=== PATIENT | female | born 1950 | race Two or more races ===

== ENCOUNTER 2017-12-03 11:50 | Emergency (ER) | payer OTHER ==
[2017-12-03 12:09] VITALS: BP 179/82; PULSE 87; TEMP 97.3; BMI 34.7
--- NOTE | 2017-12-03 13:36 | PDOC ---
History of Present Illness - General Chief Complaint: Injury Stated Complaint: FALL Time Seen by Provider: 12/03/17 12:40 History Source: Patient Exam Limitations: No Limitations - History of Present Illness Initial Comments: 12/03/17 13:35 Brought in by ambulance, status post trip and fall sidewalk. Patient struck face and right brow, but had no LOC. Denies striking nose, dental injury, or extremity injury. 12/03/17 13:40 Occurred: reports: just prior to arrival Pain Location: reports: face. denies: mouth, neck Method of Injury: Yes: fall Loss of Consciousness: no loss of consciousness Associated Symptoms (Fall): denies symptoms Past History - Travel Traveled outside of the country in the last 30 days: No Close contact w/someone who was outside of country & ill: No - Past Medical History Allergies/Adverse Reactions: Allergies Allergy/AdvReac Type Severity Reaction Status Date / Time No Known Allergies Allergy Verified 12/03/17 12:08 Home Medications: Ambulatory Orders Unobtainable [Unobtainable] 12/03/17 COPD: No Diabetes: Yes HTN: Yes - Surgical History Neurologic Surgery: Yes (back) - Immunization History Immunization Up to Date: Yes - Suicide/Smoking/Psychosocial Hx Smoking History: Never smoked Have you smoked in the past 12 months: No Information on smoking cessation initiated: No Hx Alcohol Use: No Drug/Substance Use Hx: No Substance Use Type: None Trauma Specific PMHX - Complaint Specific PMHX Back Injury: No Neck Injury: No Review of Systems - Review of Systems Able to Perform ROS?: Yes Is the patient limited [place] proficient: Yes Constitutional: Yes: Symptoms Reported, See HPI. No: Chills, Malaise HEENTM: Yes: See HPI, Other (contusion and abrasion to right lateral brow visual changes, denies drainage from nose or ears, denies dental injury). No: Symptoms Reported, Nose Congestion, Mouth Pain Respiratory: No: Symptoms reported Musculoskeletal: Yes: Symptoms Reported All Other Systems: Reviewed and Negative *Physical Exam - Vital Signs Last Vital Signs Temp Pulse Resp BP Pulse Ox 97.3 F L 87 20 179/82 97 12/03/17 12:03 12/03/17 12:03 12/03/17 12:03 12/03/17 12:03 12/03/17 12:03 - Physical Exam General Appearance: Yes: Nourished, Appropriately Dressed, Apparent Distress, Mild Distress HEENT: positive: [place], Normal ENT Inspection, Normal Voice, TMs Normal, Pharynx Normal, Other (patient with ecchymoses and superficial abrasion to right lateral brow with debris, no crepitus or step-offs to orbit, negative EOM, no nasal tenderness or bleeding from either nostril, no dental injury, neck is supple without crepitus or step-offs, ) Neck: positive: Supple. negative: Tender, Tender midline Respiratory/Chest: positive: Lungs Clear, Normal Breath Sounds. negative: Chest Tender Musculoskeletal: positive: Normal Inspection, Other (has no muscular injury or tenderness. No other extremity injury). negative: CVA Tenderness Extremity: positive: Normal Capillary Refill, Normal Range of Motion Integumentary: positive: Normal Color, Warm Neurologic: positive: felt carbonizer II-XII NML intact, Fully Oriented, Alert, Normal Mood/ Affect, Normal Response, Motor Strength 5/5 Progress Note - Progress Note Progress Note: Status post fall with superficial head injury. Patient refuses debridement of abrasion with noted foreign body. Was cleaned with peroxide and dressed with bacitracin ointment Encouraged excessive cleaning/soaking and reapply bacitracin ointment and given signs and symptoms of infection and encouraged to return to emergency department or physician as needed. Tetanus/diphtheria/ pertussis booster updated today. *DC/Admit/Observation/Transfer Diagnosis at time of Disposition: Facial abrasion Qualifiers: Encounter type: initial encounter Qualified Code(s): S00.81XA - Abrasion of other part of head, initial encounter Superficial injury of head Qualifiers: Encounter type: initial encounter Qualified Code(s): S00.90XA - Unspecified superficial injury of unspecified part of head, initial encounter - Discharge Dispostion Disposition: HOME Condition at time of disposition: Stable Admit: No - Referrals - Patient Instructions Printed Discharge Instructions: DI for Closed Head Injury, DI for Abrasion Additional Instructions: Rest, avoid strenuous activity or exercise for the next 24-48 hours May use ice on contusions as needed. May use Tylenol or Motrin for pain relief Your tetanus/diphtheria/pertussis booster was updated today Watch and seek evaluation for changes in behavior including crankiness, inconsolability, quietness/ sleepiness that is inappropriate, tiredness that is inappropriate, watch for worsening and changes of behavior. Seek immediate evaluation/return to emergency department for vomiting, mental status changes, pain that's out of proportion , bloody drainage from ears or nose. Clean wound 2-3 times a day with water and peroxide to help dirt direct and reapply bacitracin ointment after each cleaning ill healed Followup with private physician as needed in one to 2 days for reevaluation - Post Discharge Activity
[2017-12-03] MEDS ORDERED: DIPHTH,PERTUSS(ACELL),TET 0.5 ML DISP.SYRIN IM ONE (13:40)
== END 2017-12-03 13:45 | disposition home or self-care (01) ==
LOC: JERFT 11:50
PROC: 3E0234Z Introduction of Serum, Toxoid and Vaccine into Muscle, Percutaneous Approach (ICD-10-PCS; principal; 2017-12-03)
DX: S00.11XA Contusion of right eyelid and periocular area, initial encounter (principal); S00.211A Abrasion of right eyelid and periocular area, initial encounter; W01.0XXA Fall on same level from slipping, tripping and stumbling without subsequent striking against object, initial encounter; Y93.01 Activity, walking, marching and hiking; Y92.480 Sidewalk as the place of occurrence of the external cause; Y99.8 Other external cause status; I10 Essential (primary) hypertension; E11.9 Type 2 diabetes mellitus without complications
CPT/HCPCS: 90715; 99281-25

== ENCOUNTER 2024-04-22 11:05 | Inpatient (IN) | payer OTHER ==
[2024-04-22] MEDS ORDERED: amLODIPine BESYLATE 10 MG TABLET (FP) ONE (11:57)
[2024-04-22] MEDS: amLODIPine BESYLATE 10 MG TABLET (FP) PO ONE (12:13)
[2024-04-22 12:32] LABS: HEMATOCRIT 33.9 % (32.4-45.2); HEMOGLOBIN 11.2 GM/dL (10.7-15.3); MCH 28.4 pg (25.7-33.7); MCHC 33.1 g/dl (32.0-36.0); MEAN PLT VOLUME 8.5 fl (7.5-11.1); PLATELET COUNT 196 10^3/uL (134-434); RBC 3.94 M/mm3 (3.60-5.2); RDW 15.4 % (11.6-15.6); WHITE BLOOD COUNT 8.4 K/mm3 (4.0-10.0)
[2024-04-22 12:48] LABS: POTASSIUM 3.9 mmol/L (3.5-5.1)
[2024-04-22 12:50] LABS: BLOOD UREA NITROGEN 18.2 mg/dL (7-18); CALCIUM 9.4 mg/dL (8.5-10.1)
[2024-04-22 12:51] LABS: ALBUMIN 3.5 g/dl (3.4-5.0)
[2024-04-22 12:54] LABS: CREATININE 0.7 mg/dL (0.55-1.3)
[2024-04-22 12:55] LABS: BILIRUBIN,TOTAL 0.6 mg/dL (0.2-1); TOT PROT 6.8 g/dl (6.4-8.2)
[2024-04-22 13:15] LABS: EPI CELLS 26 /uL (0-25.1); HYALINE CASTS 0 /uL (0-3.1); URINE APPEARANCE CLEAR; URINE BACTERIA 135 /uL (0-1359); URINE BILIRUBIN NEGATIVE (NEGATIVE); URINE COLOR YELLOW; URINE GLUCOSE (UA) NEGATIVE (NEGATIVE); URINE KETONE NEGATIVE (NEGATIVE); URINE LEUK ESTERASE TRACE (NEGATIVE); URINE NITRITE NEGATIVE (NEGATIVE); URINE PROTEIN 2+ (NEGATIVE); URINE RBC 8 /uL (0-23.9); URINE UROBILINOGEN 0.2 mg/dL (0.2-1.0); URINE WBC 38 /uL (0-25.8)
[2024-04-22] MEDS: BREXPIPRAZOLE (REXULTI) 1 MG TABLET (RESTRICTED TO PSYCIATRY) PO ONE (14:21)
[2024-04-22] MEDS ORDERED: cefTRIAXone SODIUM 1 GM VIAL ONE (14:39)
[2024-04-22] MEDS: CEFTRIAXONE 1 GM in DEXTROSE 5%-WATER - 100 ML IVPB ONE (14:47)
[2024-04-23] MEDS ORDERED: CEFTRIAXONE 1 GM/50 ML BAG ONE (07:25)
[2024-04-23] MEDS: CEFTRIAXONE 1 GM in DEXTROSE 5%-WATER - 50 ML IVPB SCH (07:32)
[2024-04-23] MEDS: ENALAPRIL MALEATE 10 MG TABLET PO SCH (09:50)
[2024-04-23] MEDS: amLODIPine BESYLATE 10 MG TABLET (FP) PO SCH (11:36)
[2024-04-23] MEDS: HYDROCHLOROTHIAZIDE 25 MG TABLET (FP) PO SCH (11:36)
[2024-04-23 12:29] VITALS: BMI 23.6
[2024-04-23] MEDS: INSULIN ASPART SLIDING SCALE (NOVOLOG) 1 VIAL SQ SCH (16:38)
[2024-04-23] MEDS ORDERED: LORazepam 2 MG/ML SDV VIAL IVPUSH PRN (17:24)
[2024-04-23] MEDS: LORazepam 2 MG/ML SDV VIAL IVPUSH PRN (18:16)
[2024-04-23] MEDS: HEPARIN NA (PORCINE) 5,000 UNITS/ML 1ML VIAL SQ SCH (22:08)
[2024-04-23] MEDS: OLANZapine 2.5 MG TABLET PO SCH (22:08)
[2024-04-23] MEDS: ATORVASTATIN CA 10 MG TABLET (FP) PO SCH (22:08)
[2024-04-24 09:36] LABS: CHOLESTEROL 219 mg/dL (50-200)
[2024-04-24 09:37] LABS: LDL CHOLESTEROL (ONLY SJRH) 137 mg/dL (5-100)
[2024-04-24 09:39] LABS: HDL CHOLESTEROL 76 mg/dL (40-60)
[2024-04-25] MEDS: BENZOCAINE/MENTH/CETYLPYRD CL 1 EACH LOZENGE MM PRN (09:48)
[2024-04-25] MEDS ORDERED: SODIUM CHLORIDE 500 ML IV STA (14:26)
[2024-04-25] MEDS: IBUPROFEN 400 MG TABLET (FP) PO PRN (14:44)
[2024-04-26] MEDS ORDERED: INSULIN ASPART SLIDING SCALE (NOVOLOG) 1 VIAL SQ ONE (11:19)
[2024-04-26] MEDS: ACETAMINOPHEN 325 MG TABLET (FP) PO PRN (20:25)
[2024-04-27] MEDS ORDERED: COLCHICINE 0.6 MG TAB PO SCH (10:30)
[2024-04-27 11:50] LABS: BASO % 0.9 % (0-2.0); EOS % 0.5 % (0-4.5); HEMATOCRIT 33.2 % (32.4-45.2); LYMPH % 20.6 % (8-40); MCH 28.3 pg (25.7-33.7); MCHC 33.2 g/dl (32.0-36.0); MEAN CELL VOLUME 85.1 fl (80-96); MEAN PLT VOLUME 8.6 fl (7.5-11.1); MONO % 7.9 % (3.8-10.2); NEUT % 70.1 % (42.8-82.8); PLATELET COUNT 257 10^3/uL (134-434); RDW 15.6 % (11.6-15.6); WHITE BLOOD COUNT 8.9 K/mm3 (4.0-10.0)
[2024-04-27] MEDS: OLANZapine 2.5 MG TABLET PO SCH (11:59)
[2024-04-27] MEDS: COLCHICINE 0.6 MG TAB PO SCH (12:00)
[2024-04-27 12:42] LABS: ERYTHROCYTE SEDIMENTATION RATE 101 mm/hr (0-30)
[2024-04-27 13:04] LABS: POTASSIUM 3.8 mmol/L (3.5-5.1)
[2024-04-27 13:06] LABS: CALCIUM 9.8 mg/dL (8.5-10.1)
[2024-04-27 13:08] LABS: CREATININE 1.4 mg/dL (0.55-1.3); URIC ACID 8.2 mg/dL (2.6-7.2)
[2024-04-27 13:10] LABS: BILIRUBIN,TOTAL 0.5 mg/dL (0.2-1); TOT PROT 7.3 g/dl (6.4-8.2)
[2024-04-27 13:26] LABS: BLOOD UREA NITROGEN 46.7 mg/dL (7-18)
[2024-04-27] MEDS: COLCHICINE 0.6 MG CAPSULE PO SCH (13:52)
[2024-04-28] MEDS: ALLOPURINOL 100 MG TABLET (FP) PO SCH (10:37)
[2024-04-29] MEDS: LORazepam 2 MG/ML SDV VIAL IM PRN (11:43)
[2024-05-02 08:35] LABS: BASO % 0.9 % (0-2.0); HEMATOCRIT 33.6 % (32.4-45.2); LYMPH % 37.2 % (8-40); MCH 28.2 pg (25.7-33.7); MCHC 32.6 g/dl (32.0-36.0); MEAN CELL VOLUME 86.4 fl (80-96); MEAN PLT VOLUME 8.7 fl (7.5-11.1); MONO % 6.7 % (3.8-10.2); NEUT % 51.2 % (42.8-82.8); PLATELET COUNT 308 10^3/uL (134-434); RBC 3.89 M/mm3 (3.60-5.2); RDW 15.2 % (11.6-15.6); WHITE BLOOD COUNT 6.5 K/mm3 (4.0-10.0)
[2024-05-02 08:40] LABS: POTASSIUM 4.8 mmol/L (3.5-5.1)
[2024-05-02 09:10] LABS: CALCIUM 9.7 mg/dL (8.5-10.1)
[2024-05-02 09:11] LABS: BLOOD UREA NITROGEN 68.1 mg/dL (7-18)
[2024-05-02 09:14] LABS: CREATININE 1.2 mg/dL (0.55-1.3)
[2024-05-04 13:44] VITALS: BP 153/96; PULSE 98; RESP 20; TEMP 98.4
== END 2024-05-04 16:31 | disposition home or self-care (01) | DRG 884 ==
LOC: JER 11:05 → JERBED 14:00 → J7W 04-23 09:11 → OBSVTOIN 04-23 10:43
PROVIDERS: ADMIT Internal Medicine; ATTEND Internal Medicine
DX: F03.92 Unspecified dementia, unspecified severity, with psychotic disturbance (principal); I10 Essential (primary) hypertension; E11.9 Type 2 diabetes mellitus without complications; E78.5 Hyperlipidemia, unspecified
CPT/HCPCS: 36415; 70450-TC; 73610-TC-LT-FY; 73630-TC-LT; 80048; 80053; 80061; 81003; 82607; 82962; 83036; 84439; 84443; 84550; 85025; 85027; 85651; 87086; 93970-TC; 97116-GP; 97161-GP; 99285-25; G0378; J1644